=== PATIENT | female | born 1995 | race African-American/Black ===

== ENCOUNTER 2022-02-02 10:30 | Outpatient (RCR) | payer OTHER, SELFPAY ==
--- NOTE | 2021-11-11 12:39 | PT.OIE ---
Current Diagnoses Vestibular neuronitis, right ear (11/11/21) Dizziness and giddiness (11/11/21) Visit Care Team Role Provider Type Elder Ferguson DO Family Provider Non-Staff Primary Care Provider Specialty: Family Practice Address: [address] [place] [address], [id number] Email: Thomas Coombs MD Attending Provider Physician Referring Provider Specialty: Ear, Nose, Throat Address: [address] [place] [address], [id number] Email: [email or web address] Physical Therapy Initial Evaluation PT-OP-A Visit Information Start: 11/11/21 12:12 Freq: Status: Active Protocol: Document 11/11/21 11:15 DCW (Rec: 11/11/21 12:23 DCW [id number]) Out-Patient Physical Therapy Visit Information Visit Information Visit Type Initial Evaluation Visit Start Time 11:15 Visit Stop Time 12:00 Total Visit Minutes 45 Visit Number 1 Number of CABIN OUTFITTER Visits 0 Evaluation Information Evaluation Date 11/11/21 PT-OP-B Current Condition Start: 11/11/21 12:12 Freq: Status: Active Protocol: Document 11/11/21 11:15 DCW (Rec: 11/11/21 12:23 DCW [id number]) Current Condition History of Current Condition Onset Date September 2019 Current Complaints Imbalance, vertigo, dizziness with fast movements History of Current Condition Pt is a 26 year old female complaining of a two year history of spontaneous vertigo and imbalance. Pt reports her initial episode occurred during the same time she was diagnosed with Covid-19, notes it lasted multiple days and consisted of feeling like someone was squeezing my head, and then the world turning on it's side. Notes she had nausea and was vomiting with any movements. Those symptoms subsided, and were replaced with general sensations of imbalance when moving around, especially with fast head turns. Pt reports symptoms are worse with in a car or walking down the aisle of a grocery store. It feels like there is a delay in my brain with every movement. Pt denies recent hearing changes, tinnitus, diplopia, dysarthria, or decreased mentation/consciousness. Does admit to feeling clumsier since this happened, has even had a fall down stairs due to dizziness. Pt reports symptoms are waxing/waning in nature. Pt denies hx of HTN, hyperlipidemia, diabetes, arrhythmia, head trauma, seizure, back/neck problems, CVA, or excessive smoking or drinking. Does note a history of migraine, however she is unable to determine if she had migraines prior to her dizziness, or if they began the same time. PT-OP-C Subjective Start: 11/11/21 12:12 Freq: Status: Active Protocol: Document 11/11/21 11:15 DCW (Rec: 11/11/21 12:23 DCW [id number]) OP-PT Subjective Patient Comments Patient Comments Since the first bad episode stopped, it's more like a phantom dizziness. It's just always there lurking. Patient Questionnaires Dizziness Handicap Inventory DHI Score 54% DHI Functional Impairment 40 to 59% Impaired (Score 40- 59) PT-OP-O Vestibular Start: 11/11/21 12:12 Freq: Status: Active Protocol: Document 11/11/21 11:15 DCW (Rec: 11/11/21 12:23 DCW [id number]) Vestibular Assessment Auditory Tests Mata Test Within normal limits Rinne Test Negative Air Conduction Results Equal Visual Testing Smooth Pursuits Horizontal WNL Smooth Pursuits Vertical WNL Saccades Horizontal WNL Saccades Vertical WNL Gaze Evoked Nystagmus With Fixation Negative Gaze Evoked Nystagmus Without Fixation Negative Heave Test Positive Right Thrust Head Positive Right Aguila String Test WNL DVA (Line Degradation) 5 Head Shake Negative PT-OP-Q Treatments Start: 11/11/21 12:12 Freq: Status: Active Protocol: Document 11/11/21 11:15 DCW (Rec: 11/11/21 12:25 DCW [id number]) Neuro Re-Education Treatment Vestibular Rehabilitation Corrective Saccades Details Eyes, then head Distance From Target Arm length Speed as tolerated Position seated X2 Viewing Details Target and head moving opposite directions Distance From Target Arm length Speed as tolerated Position seated X1 Viewing Details Target still, head moving Distance From Target Arm length Speed as tolerated Position seated VOR Retraining Details VOR Cancellation - head and target move together Distance From Target Arm length Speed as tolerated Position seated PT-OP-T Assessment and Plan Start: 11/11/21 12:12 Freq: Status: Active Protocol: Document 11/11/21 11:15 DCW (Rec: 11/11/21 12:39 DCW [id number]) Physical Therapy Assessment Rehab Potential Rehabilitation Potential Good Evaluation Complexity Number of Personal Factors/Comorbidities 0 Number of Body Systems Impaired 1-2 Clinical Presentation at Evaluation Unstable Impairments Impairments Balance,Coordination, Vestibular,Visual Motor Goals Three Impairment DVA shows 5 line degradation Drip Box Tender Goal (LTG) Pt to demonstrate a DVA less than or equal to 3 line degradation LTG Duration 01/11/22 Two Impairment Pt suffers increased symptoms walking in a grocery store Fpc Goal (LTG) Pt to demonstrate decreased visual motion sensitivity by showing no increased symptoms following trip to her grocery store LTG Duration 01/11/22 One Impairment Pt does not have an appropriate home exercise program Short Term Goal (STG) Pt to be independent and compliant with an appropriate HEP STG Duration 12/11/21 Assessment Summary Assessment Pt presents with signs and symptoms consistent with right unilateral vestibular hypofunction, likely Vestibular Neuritis as there does not appear to be any decrease in auditory function. Pt subjective history of illness followed by an extended episode of vertigo, and then following with general balance difficulty, especially with head movements strongly suggestive of VN, in addition to pt presenting with positive R thrust and heave testing, as well as a 5 line degradation with DVA testing. Pt should benefit from skilled therapy focusing on vestibular rehab, oculomotor exercises, balance training, and habituation/ adaptation. Physical Therapy Plan Frequency and Duration Frequency of Treatment 2x/Week Duration of Treatment Two months Plan of Care Start Date 11/11/21 Plan of Care End Date 01/11/22 Therapeutic Interventions Therapeutic Interventions Balance Training,Coordination Training,Home Exercise Program ,Manual Therapy,Neuromuscular Re-education,Patient/Caregiver Education,Self-Care/Home Management,Sensory Integration ,Therapeutic Activities, Therapeutic Exercises, Vestibular Rehabilitation Next Visit Focus/Plan Next Note Type Treatment Note Next Visit Plan Vestibular rehab, balance training
--- NOTE | 2021-11-11 12:43 | PT.OIE ---
Current Diagnoses Vestibular neuronitis, right ear (11/11/21) Dizziness and giddiness (11/11/21) Visit Care Team Role Provider Type Elder Ferguson DO Family Provider Non-Staff Primary Care Provider Specialty: Family Practice Address: [address] [place] [address], [id number] Email: Thomas Coombs MD Attending Provider Physician Referring Provider Specialty: Ear, Nose, Throat Address: [address] [place] [address], [id number] Email: [email or web address] Physical Therapy Initial Evaluation PT-OP-A Visit Information Start: 11/11/21 12:12 Freq: Status: Active Protocol: Document 11/11/21 11:15 DCW (Rec: 11/11/21 12:23 DCW [id number]) Out-Patient Physical Therapy Visit Information Visit Information Visit Type Initial Evaluation Visit Start Time 11:15 Visit Stop Time 12:00 Total Visit Minutes 45 Visit Number 1 Number of AUTO PARKER Visits 0 Evaluation Information Evaluation Date 11/11/21 PT-OP-B Current Condition Start: 11/11/21 12:12 Freq: Status: Active Protocol: Document 11/11/21 11:15 DCW (Rec: 11/11/21 12:23 DCW [id number]) Current Condition History of Current Condition Onset Date September 2019 Current Complaints Imbalance, vertigo, dizziness with fast movements History of Current Condition Pt is a 26 year old female complaining of a two year history of spontaneous vertigo and imbalance. Pt reports her initial episode occurred during the same time she was diagnosed with Covid-19, notes it lasted multiple days and consisted of feeling like someone was squeezing my head, and then the world turning on it's side. Notes she had nausea and was vomiting with any movements. Those symptoms subsided, and were replaced with general sensations of imbalance when moving around, especially with fast head turns. Pt reports symptoms are worse with in a car or walking down the asile of a grocery store. It feels like there is a delay in my brain with every movement. Pt denies recent hearing changes, tinnitus, diplopia, dysarthria, or decreased mentation/consciousness. Does admit to feeling clumsier since this happened, has even had a fall down stairs due to dizziness. Pt reports symptoms are waxing/waning in nature. Pt denies hx of HTN, hyperlipidemia, diabetes, arrhythmia, head trauma, seizure, back/neck problems, CVA, or excessive smoking or drinking. Does note a history of migraine, however she is unable to determine if she had migraines prior to her dizziness, or if they began the same time. PT-OP-C Subjective Start: 11/11/21 12:12 Freq: Status: Active Protocol: Document 11/11/21 11:15 DCW (Rec: 11/11/21 12:23 DCW [id number]) OP-PT Subjective Patient Comments Patient Comments Since the first bad episode stopped, it's more like a phantom dizziness. It's just always there lurking. Patient Questionnaires Dizziness Handicap Inventory DHI Score 54% DHI Functional Impairment 40 to 59% Impaired (Score 40- 59) PT-OP-O Vestibular Start: 11/11/21 12:12 Freq: Status: Active Protocol: Document 11/11/21 11:15 DCW (Rec: 11/11/21 12:23 DCW [id number]) Vestibular Assessment Auditory Tests Mata Test Within normal limits Rinne Test Negative Air Conduction Results Equal Visual Testing Smooth Pursuits Horizontal WNL Smooth Pursuits Vertical WNL Saccades Horizontal WNL Saccades Vertical WNL Gaze Evoked Nystagmus With Fixation Negative Gaze Evoked Nystagmus Without Fixation Negative Heave Test Positive Right Thrust Head Positive Right Aguila String Test WNL DVA (Line Degradation) 5 Head Shake Negative PT-OP-Q Treatments Start: 11/11/21 12:12 Freq: Status: Active Protocol: Document 11/11/21 11:15 DCW (Rec: 11/11/21 12:25 DCW [id number]) Neuro Re-Education Treatment Vestibular Rehabilitation Corrective Saccades Details Eyes, then head Distance From Target Arm length Speed as tolerated Position seated X2 Viewing Details Target and head moving opposite directions Distance From Target Arm length Speed as tolerated Position seated X1 Viewing Details Target still, head moving Distance From Target Arm length Speed as tolerated Position seated VOR Retraining Details VOR Cancellation - head and target move together Distance From Target Arm length Speed as tolerated Position seated PT-OP-T Assessment and Plan Start: 11/11/21 12:12 Freq: Status: Active Protocol: Document 11/11/21 11:15 DCW (Rec: 11/11/21 12:39 DCW [id number]) Physical Therapy Assessment Rehab Potential Rehabilitation Potential Good Evaluation Complexity Number of Personal Factors/Comorbidities 0 Number of Body Systems Impaired 1-2 Clinical Presentation at Evaluation Unstable Impairments Impairments Balance,Coordination, Vestibular,Visual Motor Goals Three Impairment DVA shows 5 line degradation Lens Cutter Goal (LTG) Pt to demonstrate a DVA less than or equal to 3 line degradation LTG Duration 01/11/22 Two Impairment Pt suffers increased symptoms walking in a grocery store Retirement Goal (LTG) Pt to demonstrate decreased visual motion sensitivity by showing no increased symptoms following trip to her grocery store LTG Duration 01/11/22 One Impairment Pt does not have an appropriate home exercise program Short Term Goal (STG) Pt to be independent and compliant with an appropriate HEP STG Duration 12/11/21 Assessment Summary Assessment Pt presents with signs and symptoms consistent with right unilateral vestibular hypofunction, likely Vestibular Neuritis as there does not appear to be any decrease in auditory function. Pt subjective history of illness followed by an extended episode of vertigo, and then following with general balance difficulty, especially with head movements strongly suggestive of VN, in addition to pt presenting with positive R thrust and heave testing, as well as a 5 line degradation with DVA testing. Pt should benefit from skilled therapy focusing on vestibular rehab, oculomotor exercises, balance training, and habituation/ adaptation. As this initial episode occurred two years ago , pt does show some good signs of already experiencing fairly good compensation with many movements, but as she admits she avoids aggravating motions, will likely benefit from further intervention. Physical Therapy Plan Frequency and Duration Frequency of Treatment 2x/Week Duration of Treatment Two months Plan of Care Start Date 11/11/21 Plan of Care End Date 01/11/22 Therapeutic Interventions Therapeutic Interventions Balance Training,Coordination Training,Home Exercise Program ,Manual Therapy,Neuromuscular Re-education,Patient/Caregiver Education,Self-Care/Home Management,Sensory Integration ,Therapeutic Activities, Therapeutic Exercises, Vestibular Rehabilitation Next Visit Focus/Plan Next Note Type Treatment Note Next Visit Plan Vestibular rehab, balance training
--- NOTE | 2021-11-11 12:43 | PT.OPPOC ---
Physical, Occupational & Speech Therapy At [facility] Current Diagnoses Vestibular neuronitis, right ear (11/11/21) Dizziness and giddiness (11/11/21) Visit Care Team Role Provider Type Elder Ferguson DO Family Provider Non-Staff Primary Care Provider Specialty: Family Practice Address: [address] [place] [address], [id number] Email: Thomas Coombs MD Attending Provider Physician Referring Provider Specialty: Ear, Nose, Throat Address: [address] [place] [address], [id number] Email: [email or web address] Plan Of Care PT-OP-T Assessment and Plan Start: 11/11/21 12:12 Freq: Status: Active Protocol: Document 11/11/21 11:15 DCW (Rec: 11/11/21 12:39 DCW [id number]) Physical Therapy Assessment Rehab Potential Rehabilitation Potential Good Evaluation Complexity Number of Personal Factors/Comorbidities 0 Number of Body Systems Impaired 1-2 Clinical Presentation at Evaluation Unstable Impairments Impairments Balance,Coordination, Vestibular,Visual Motor Goals Three Impairment DVA shows 5 line degradation Fci Goal (LTG) Pt to demonstrate a DVA less than or equal to 3 line degradation LTG Duration 01/11/22 Two Impairment Pt suffers increased symptoms walking in a grocery store Stove Mounter Goal (LTG) Pt to demonstrate decreased visual motion sensitivity by showing no increased symptoms following trip to her grocery store LTG Duration 01/11/22 One Impairment Pt does not have an appropriate home exercise program Short Term Goal (STG) Pt to be independent and compliant with an appropriate HEP STG Duration 12/11/21 Assessment Summary Assessment Pt presents with signs and symptoms consistent with right unilateral vestibular hypofunction, likely Vestibular Neuritis as there does not appear to be any decrease in auditory function. Pt subjective history of illness followed by an extended episode of vertigo, and then following with general balance difficulty, especially with head movements strongly suggestive of VN, in addition to pt presenting with positive R thrust and heave testing, as well as a 5 line degradation with DVA testing. Pt should benefit from skilled therapy focusing on vestibular rehab, oculomotor exercises, balance training, and habituation/ adaptation. As this initial episode occurred two years ago , pt does show some good signs of already experiencing fairly good compensation with many movements, but as she admits she avoids aggravating motions, will likely benefit from further intervention. Physical Therapy Plan Frequency and Duration Frequency of Treatment 2x/Week Duration of Treatment Two months Plan of Care Start Date 11/11/21 Plan of Care End Date 01/11/22 Therapeutic Interventions Therapeutic Interventions Balance Training,Coordination Training,Home Exercise Program ,Manual Therapy,Neuromuscular Re-education,Patient/Caregiver Education,Self-Care/Home Management,Sensory Integration ,Therapeutic Activities, Therapeutic Exercises, Vestibular Rehabilitation Next Visit Focus/Plan Next Note Type Treatment Note Next Visit Plan Vestibular rehab, balance training Plan of Care Dates Plan of Care Start Date 11/11/21 Plan of Care End Date 01/11/22 Electronically Signed by: Eric Wakefield, PT 11/11/21 [id number] If you are in agreement with this Plan of Care, please return a signed and dated copy. I have reviewed this Plan of Care and certify that the skilled therapy services above are required to meet the patient?s needs. Physician Signature Date Printed Name and Credentials Clinical Instructor Signature Printed Name and Credentials
--- NOTE | 2021-11-14 10:32 | PT.OTN ---
Current Diagnoses Vestibular neuronitis, right ear (11/14/21) Dizziness and giddiness (11/14/21) Physical Therapy Treatment Note PT-OP-A Visit Information Start: 11/11/21 12:12 Freq: Status: Active Protocol: Document 11/14/21 09:45 DCW (Rec: 11/14/21 10:32 DCW [id number]) Out-Patient Physical Therapy Visit Information Visit Information Visit Type Treatment Note Visit Start Time 09:45 Visit Stop Time 10:30 Total Visit Minutes 45 Visit Number 2 Number of CHILDREN'S LITERATURE PROFESSOR Visits 0 Evaluation Information Evaluation Date 11/11/21 PT-OP-B Current Condition Start: 11/11/21 12:12 Freq: Status: Active Protocol: Document 11/11/21 11:15 DCW (Rec: 11/11/21 12:23 DCW [id number]) Current Condition History of Current Condition Onset Date September 2019 Current Complaints Imbalance, vertigo, dizziness with fast movements History of Current Condition Pt is a 26 year old female complaining of a two year history of spontaneous vertigo and imbalance. Pt reports her initial episode occurred during the same time she was diagnosed with Covid-19, notes it lasted multiple days and consisted of feeling like someone was squeezing my head, and then the world turning on it's side. Notes she had nausea and was vomiting with any movements. Those symptoms subsided, and were replaced with general sensations of imbalance when moving around, especially with fast head turns. Pt reports symptoms are worse with in a car or walking down the asile of a grocery store. It feels like there is a delay in my brain with every movement. Pt denies recent hearing changes, tinnitus, diplopia, dysarthria, or decreased mentation/consciousness. Does admit to feeling clumsier since this happened, has even had a fall down stairs due to dizziness. Pt reports symptoms are waxing/waning in nature. Pt denies hx of HTN, hyperlipidemia, diabetes, arrhythmia, head trauma, seizure, back/neck problems, CVA, or excessive smoking or drinking. Does note a history of migraine, however she is unable to determine if she had migraines prior to her dizziness, or if they began the same time. PT-OP-C Subjective Start: 11/11/21 12:12 Freq: Status: Active Protocol: Document 11/14/21 09:45 DCW (Rec: 11/14/21 10:32 [facility] [id number]) OP-PT Subjective Patient Comments Patient Comments Pt doing pretty well today, has been consistent with her HEP so far. PT-OP-O Vestibular Start: 11/11/21 12:12 Freq: Status: Active Protocol: Document 11/11/21 11:15 DCW (Rec: 11/11/21 12:23 DCW [id number]) Vestibular Assessment Auditory Tests Mata Test Within normal limits Rinne Test Negative Air Conduction Results Equal Visual Testing Smooth Pursuits Horizontal WNL Smooth Pursuits Vertical WNL Saccades Horizontal WNL Saccades Vertical WNL Gaze Evoked Nystagmus With Fixation Negative Gaze Evoked Nystagmus Without Fixation Negative Heave Test Positive Right Thrust Head Positive Right Aguila String Test WNL DVA (Line Degradation) 5 Head Shake Negative PT-OP-Q Treatments Start: 11/11/21 12:12 Freq: Status: Active Protocol: Document 11/14/21 09:45 DCW (Rec: 11/14/21 10:32 [facility] [id number]) Gym Equipment Shuttle Balance Red Comments WBOS - EO/EC, X1 Staggered Stance Neuro Re-Education Treatment Balance Activities SLS Details SLS /c EO/EC [place] and Turns Details 3-steps, bow, and head turn Dynamic gait Details Ambulation down hallway Comments Horizontal/vertical head turns Tandem ambulation EC ambulation Retro ambulation Vestibular Rehabilitation Laser Targets Details VOR Cancellation, Signature, Maze PT-OP-T Assessment and Plan Start: 11/11/21 12:12 Freq: Status: Active Protocol: Document 11/14/21 09:45 DCW (Rec: 11/14/21 10:32 [facility] [id number]) Physical Therapy Assessment Impairments Impairments Balance,Coordination, Vestibular,Visual Motor Goals Three Impairment DVA shows 5 line degradation Tester Rocket Engine Goal (LTG) Pt to demonstrate a DVA less than or equal to 3 line degradation LTG Duration 01/11/22 Two Impairment Pt suffers increased symptoms walking in a grocery store Assisted Goal (LTG) Pt to demonstrate decreased visual motion sensitivity by showing no increased symptoms following trip to her grocery store LTG Duration 01/11/22 One Impairment Pt does not have an appropriate home exercise program Short Term Goal (STG) Pt to be independent and compliant with an appropriate HEP STG Duration 5/26/22 Assessment Summary Assessment Pt tolerated treatment fairly well, very clearly struggled with addition of any head movements, but able to maintain functional balance. Physical Therapy Plan Frequency and Duration Frequency of Treatment 2x/Week Duration of Treatment Two months Plan of Care Start Date 11/11/21 Plan of Care End Date 01/11/22 Therapeutic Interventions Therapeutic Interventions Balance Training,Coordination Training,Home Exercise Program ,Manual Therapy,Neuromuscular Re-education,Patient/Caregiver Education,Self-Care/Home Management,Sensory Integration ,Therapeutic Activities, Therapeutic Exercises, Vestibular Rehabilitation Next Visit Focus/Plan Next Note Type Treatment Note Next Visit Plan Vestibular rehab, balance training
--- NOTE | 2021-11-20 12:03 | PT.OTN ---
Current Diagnoses Vestibular neuronitis, right ear (11/20/21) Dizziness and giddiness (11/20/21) Physical Therapy Treatment Note PT-OP-A Visit Information Start: 11/11/21 12:12 Freq: Status: Active Protocol: Document 11/20/21 10:35 DCW (Rec: 11/20/21 12:03 DCW [id number]) Out-Patient Physical Therapy Visit Information Visit Information Visit Type Treatment Note Visit Start Time 10:35 Visit Stop Time 11:15 Total Visit Minutes 40 Visit Number 3 Number of GENERATOR ASSEMBLER Visits 0 Evaluation Information Evaluation Date 11/11/21 PT-OP-B Current Condition Start: 11/11/21 12:12 Freq: Status: Active Protocol: Document 11/11/21 11:15 DCW (Rec: 11/11/21 12:23 DCW [id number]) Current Condition History of Current Condition Onset Date September 2019 Current Complaints Imbalance, vertigo, dizziness with fast movements History of Current Condition Pt is a 26 year old female complaining of a two year history of spontaneous vertigo and imbalance. Pt reports her initial episode occurred during the same time she was diagnosed with Covid-19, notes it lasted multiple days and consisted of feeling like someone was squeezing my head, and then the world turning on it's side. Notes she had nausea and was vomiting with any movements. Those symptoms subsided, and were replaced with general sensations of imbalance when moving around, especially with fast head turns. Pt reports symptoms are worse with in a car or walking down the asile of a grocery store. It feels like there is a delay in my brain with every movement. Pt denies recent hearing changes, tinnitus, diplopia, dysarthria, or decreased mentation/consciousness. Does admit to feeling clumsier since this happened, has even had a fall down stairs due to dizziness. Pt reports symptoms are waxing/waning in nature. Pt denies hx of HTN, hyperlipidemia, diabetes, arrhythmia, head trauma, seizure, back/neck problems, CVA, or excessive smoking or drinking. Does note a history of migraine, however she is unable to determine if she had migraines prior to her dizziness, or if they began the same time. PT-OP-C Subjective Start: 11/11/21 12:12 Freq: Status: Active Protocol: Document 11/20/21 10:35 DCW (Rec: 11/20/21 12:03 DCW [id number]) OP-PT Subjective Patient Comments Patient Comments PT notes she was a little fatigued following her last visit, but it only lasted ~10 minutes. PT-OP-O Vestibular Start: 11/11/21 12:12 Freq: Status: Active Protocol: Document 11/11/21 11:15 DCW (Rec: 11/11/21 12:23 DCW [id number]) Vestibular Assessment Auditory Tests Mata Test Within normal limits Rinne Test Negative Air Conduction Results Equal Visual Testing Smooth Pursuits Horizontal WNL Smooth Pursuits Vertical WNL Saccades Horizontal WNL Saccades Vertical WNL Gaze Evoked Nystagmus With Fixation Negative Gaze Evoked Nystagmus Without Fixation Negative Heave Test Positive Right Thrust Head Positive Right [place] String Test WNL DVA (Line Degradation) 5 Head Shake Negative PT-OP-Q Treatments Start: 11/11/21 12:12 Freq: Status: Active Protocol: Document 11/20/21 10:35 DCW (Rec: 11/20/21 12:03 DCW [id number]) Gym Equipment Shuttle Balance Red Comments WBOS - EO/EC, X1, perturbations Staggered Stance - ball toss Neuro Re-Education Treatment Balance Activities [place] and Turns Details 3-steps, bow, and head turn Dynamic gait Details Ambulation down hallway Comments Horizontal/vertical head turns (120 bpm) Tandem ambulation EC ambulation Retro ambulation PT-OP-T Assessment and Plan Start: 11/11/21 12:12 Freq: Status: Active Protocol: Document 11/20/21 10:35 DCW (Rec: 11/20/21 12:03 DCW [id number]) Physical Therapy Assessment Impairments Impairments Balance,Coordination, Vestibular,Visual Motor Goals Three Impairment DVA shows 5 line degradation Subsystems Engineer Goal (LTG) Pt to demonstrate a DVA less than or equal to 3 line degradation LTG Duration 01/11/22 Two Impairment Pt suffers increased symptoms walking in a grocery store Care Home Goal (LTG) Pt to demonstrate decreased visual motion sensitivity by showing no increased symptoms following trip to her grocery store LTG Duration 01/11/22 One Impairment Pt does not have an appropriate home exercise program Short Term Goal (STG) Pt to be independent and compliant with an appropriate HEP STG Duration 12/11/21 Assessment Summary Assessment Pt demonstrated some increased difficulty with most of the dynamic challenges, especially horizontal head turns and the step/bow/turn exercise. Increased path deviation when using 120 bpm metronome. Physical Therapy Plan Frequency and Duration Frequency of Treatment 2x/Week Duration of Treatment Two months Plan of Care Start Date 11/11/21 Plan of Care End Date 01/11/22 Therapeutic Interventions Therapeutic Interventions Balance Training,Coordination Training,Home Exercise Program ,Manual Therapy,Neuromuscular Re-education,Patient/Caregiver Education,Self-Care/Home Management,Sensory Integration ,Therapeutic Activities, Therapeutic Exercises, Vestibular Rehabilitation Next Visit Focus/Plan Next Note Type Treatment Note Next Visit Plan Vestibular rehab, balance training
--- NOTE | 2021-12-03 12:53 | PT.OTN ---
Current Diagnoses Vestibular neuronitis, right ear (12/03/21) Dizziness and giddiness (12/03/21) Physical Therapy Treatment Note PT-OP-A Visit Information Start: 11/11/21 12:12 Freq: Status: Active Protocol: Document 12/03/21 11:31 AMB (Rec: 12/03/21 11:55 AMB [id number]) Out-Patient Physical Therapy Visit Information Visit Information Visit Type Treatment Note Visit Start Time 10:35 Visit Stop Time 11:15 Total Visit Minutes 40 Visit Number 4 Number of DOWEL INSERTING MACHINE OPERATOR Visits 0 PT-OP-B Current Condition Start: 11/11/21 12:12 Freq: Status: Active Protocol: Document 11/11/21 11:15 DCW (Rec: 11/11/21 12:23 DCW [id number]) Current Condition History of Current Condition Onset Date September 2019 Current Complaints Imbalance, vertigo, dizziness with fast movements History of Current Condition Pt is a 26 year old female complaining of a two year history of spontaneous vertigo and imbalance. Pt reports her initial episode occurred during the same time she was diagnosed with Covid-19, notes it lasted multiple days and consisted of feeling like someone was squeezing my head, and then the world turning on it's side. Notes she had nausea and was vomiting with any movements. Those symptoms subsided, and were replaced with general sensations of imbalance when moving around, especially with fast head turns. Pt reports symptoms are worse with in a car or walking down the asile of a grocery store. It feels like there is a delay in my brain with every movement. Pt denies recent hearing changes, tinnitus, diplopia, dysarthria, or decreased mentation/consciousness. Does admit to feeling clumsier since this happened, has even had a fall down stairs due to dizziness. Pt reports symptoms are waxing/waning in nature. Pt denies hx of HTN, hyperlipidemia, diabetes, arrhythmia, head trauma, seizure, back/neck problems, CVA, or excessive smoking or drinking. Does note a history of migraine, however she is unable to determine if she had migraines prior to her dizziness, or if they began the same time. PT-OP-C Subjective Start: 11/11/21 12:12 Freq: Status: Active Protocol: Document 12/03/21 11:31 AMB (Rec: 12/03/21 11:55 AMB [id number]) OP-PT Subjective Patient Comments Patient Comments Pt stayed dizzy for about 10 minutes after PT last visit, noticed some right sided ear pressure. PT-OP-O Vestibular Start: 11/11/21 12:12 Freq: Status: Active Protocol: Document 11/11/21 11:15 DCW (Rec: 11/11/21 12:23 DCW [id number]) Vestibular Assessment Auditory Tests Mata Test Within normal limits Rinne Test Negative Air Conduction Results Equal Visual Testing Smooth Pursuits Horizontal WNL Smooth Pursuits Vertical WNL Saccades Horizontal WNL Saccades Vertical WNL Gaze Evoked Nystagmus With Fixation Negative Gaze Evoked Nystagmus Without Fixation Negative Heave Test Positive Right Thrust Head Positive Right [place] String Test WNL DVA (Line Degradation) 5 Head Shake Negative PT-OP-Q Treatments Start: 11/11/21 12:12 Freq: Status: Active Protocol: Document 12/03/21 11:31 AMB (Rec: 12/03/21 11:55 AMB [id number]) Neuro Re-Education Treatment Balance Activities foam Details eyes open/eyes closed SLS Details SLS /c EO/EC [place] and Turns Details 3-steps, bow, and head turn Reps/Duration 5 min- 1 rest break Comments slow head turn Dynamic gait Details Ambulation down hallway Comments Horizontal/vertical head turns (90 bpm) Tandem ambulation Retro ambulation Vestibular Rehabilitation X2 Viewing Details Target and head moving opposite directions Distance From Target Arm length Speed as tolerated Position standing X1 Viewing Details Target still, head moving Distance From Target Arm length Speed as tolerated Position standing PT-OP-T Assessment and Plan Start: 11/11/21 12:12 Freq: Status: Active Protocol: Document 12/03/21 12:40 AMB (Rec: 12/03/21 12:49 AMB [id number]) Physical Therapy Assessment Goals Three Impairment DVA shows 5 line degradation Supervisor Stone Goal (LTG) Pt to demonstrate a DVA less than or equal to 3 line degradation LTG Duration 01/11/22 Two Impairment Pt suffers increased symptoms walking in a grocery store Intermediate Goal (LTG) Pt to demonstrate decreased visual motion sensitivity by showing no increased symptoms following trip to her grocery store LTG Duration 01/11/22 One Impairment Pt does not have an appropriate home exercise program Short Term Goal (STG) Pt to be independent and compliant with an appropriate HEP STG Duration 12/11/21 Assessment Summary Assessment Lianne will be out of town for the next 3 weeks [place]. Did ask pt to try to do HEP 2x /day and try for earlier in the day when she is not already quite tired. Physical Therapy Plan Next Visit Focus/Plan Next Note Type Treatment Note Next Visit Plan Vestibular rehab, balance training
--- NOTE | 2022-01-08 14:30 | PT.OTN ---
Current Diagnoses Dizziness and giddiness (01/08/22) Physical Therapy Treatment Note PT-OP-A Visit Information Start: 11/11/21 12:12 Freq: Status: Active Protocol: Document 01/08/22 13:45 DCW (Rec: 01/08/22 14:29 DCW [id number]) Out-Patient Physical Therapy Visit Information Visit Information Visit Type Progress Note Visit Start Time 13:45 Visit Stop Time 14:30 Total Visit Minutes 45 Visit Number 5 Number of MANAGER UNIVERSAL Visits 0 Evaluation Information Evaluation Date 11/11/21 PT-OP-B Current Condition Start: 11/11/21 12:12 Freq: Status: Active Protocol: Document 11/11/21 11:15 DCW (Rec: 11/11/21 12:23 DCW [id number]) Current Condition History of Current Condition Onset Date September 2019 Current Complaints Imbalance, vertigo, dizziness with fast movements History of Current Condition Pt is a 26 year old female complaining of a two year history of spontaneous vertigo and imbalance. Pt reports her initial episode occurred during the same time she was diagnosed with Covid-19, notes it lasted multiple days and consisted of feeling like someone was squeezing my head, and then the world turning on it's side. Notes she had nausea and was vomiting with any movements. Those symptoms subsided, and were replaced with general sensations of imbalance when moving around, especially with fast head turns. Pt reports symptoms are worse with in a car or walking down the asile of a grocery store. It feels like there is a delay in my brain with every movement. Pt denies recent hearing changes, tinnitus, diplopia, dysarthria, or decreased mentation/consciousness. Does admit to feeling clumsier since this happened, has even had a fall down stairs due to dizziness. Pt reports symptoms are waxing/waning in nature. Pt denies hx of HTN, hyperlipidemia, diabetes, arrhythmia, head trauma, seizure, back/neck problems, CVA, or excessive smoking or drinking. Does note a history of migraine, however she is unable to determine if she had migraines prior to her dizziness, or if they began the same time. PT-OP-C Subjective Start: 11/11/21 12:12 Freq: Status: Active Protocol: Document 01/08/22 13:45 DCW (Rec: 06/23/22 14:29 DCW [id number]) OP-PT Subjective Patient Comments Patient Comments Pt notes she is feeling pretty good, but has had the last month off work, and hasn't been doing a lot. PT-OP-O Vestibular Start: 11/11/21 12:12 Freq: Status: Active Protocol: Document 01/08/22 13:45 DCW (Rec: 01/08/22 14:29 DCW [id number]) Vestibular Assessment Visual Testing DVA (Line Degradation) 5 PT-OP-Q Treatments Start: 11/11/21 12:12 Freq: Status: Active Protocol: Document 01/08/22 13:45 DCW (Rec: 01/08/22 14:29 DCW [id number]) Gym Equipment Shuttle Balance Red Comments WBOS - EO/EC, X1 Lateral weight shift Neuro Re-Education Treatment Balance Activities foam Details Blue BOSU Equipment railing SLS Details SLS /c EO/EC [place] and Turns Details 3-steps, bow, and head turn Comments slow head turn Dynamic gait Details Ambulation down hallway Comments Horizontal/vertical head turns (120 bpm) Tandem ambulation Retro ambulation Vestibular Rehabilitation X2 Viewing Details Target and head moving opposite directions Distance From Target Arm length Speed as tolerated Position Tandem stance Comments 90 bpm PT-OP-T Assessment and Plan Start: 11/11/21 12:12 Freq: Status: Active Protocol: Document 01/08/22 13:45 DCW (Rec: 01/08/22 14:29 DCW [id number]) Physical Therapy Assessment Goals Three Impairment DVA shows 5 line degradation Prison Goal (LTG) Pt to demonstrate a DVA less than or equal to 3 line degradation LTG Duration 03/10/22 Two Impairment Pt suffers increased symptoms walking in a grocery store Carpenter/Labor Goal (LTG) Pt to demonstrate decreased visual motion sensitivity by showing no increased symptoms following trip to her grocery store LTG Duration 03/10/22 One Impairment Pt does not have an appropriate home exercise program Short Term Goal (STG) Pt to be independent and compliant with an appropriate HEP STG Duration 02/07/22 - Inconsistent Assessment Summary Assessment Pt unchanged with DVA score since initial evaluation, did note that overall she feels like her symptoms have improved, however during today 's session, she actually complained of worse symptoms. Pt has not been seen in a month, and admits she has not been very consistent with her HEP. Would like to continue skilled vestibular rehabilitation to help decrease subjective complaints . Physical Therapy Plan Frequency and Duration Frequency of Treatment 2x/Week Duration of Treatment Two months Plan of Care Start Date 01/08/22 Plan of Care End Date 03/10/22 Next Visit Focus/Plan Next Note Type Treatment Note Next Visit Plan Vestibular rehab, balance training
--- NOTE | 2022-01-08 14:30 | PT.OPPOC ---
Physical, Occupational & Speech Therapy At [facility] Current Diagnoses Dizziness and giddiness (01/08/22) Visit Care Team Role Provider Type Elder Ferguson DO Family Provider Non-Staff Primary Care Provider Specialty: Family Practice Address: [address] [place] [address], [id number] Email: Thomas Coombs MD Attending Provider Physician Referring Provider Specialty: Ear, Nose, Throat Address: [address] [place] [address], [id number] Email: [email or web address] Plan Of Care PT-OP-T Assessment and Plan Start: 11/11/21 12:12 Freq: Status: Active Protocol: Document 01/08/22 13:45 DCW (Rec: 01/08/22 14:29 DCW [id number]) Physical Therapy Assessment Goals Three Impairment DVA shows 5 line degradation Shelter Goal (LTG) Pt to demonstrate a DVA less than or equal to 3 line degradation LTG Duration 03/10/22 Two Impairment Pt suffers increased symptoms walking in a grocery store Shelter Goal (LTG) Pt to demonstrate decreased visual motion sensitivity by showing no increased symptoms following trip to her grocery store LTG Duration 03/10/22 One Impairment Pt does not have an appropriate home exercise program Short Term Goal (STG) Pt to be independent and compliant with an appropriate HEP STG Duration 02/07/22 - Inconsistent Assessment Summary Assessment Pt unchanged with DVA score since initial evaluation, did note that overall she feels like her symptoms have improved, however during today 's session, she actually complained of worse symptoms. Pt has not been seen in a month, and admits she has not been very consistent with her HEP. Would like to continue skilled vestibular rehabilitation to help decrease subjective complaints . Physical Therapy Plan Frequency and Duration Frequency of Treatment 2x/Week Duration of Treatment Two months Plan of Care Start Date 01/08/22 Plan of Care End Date 03/10/22 Next Visit Focus/Plan Next Note Type Treatment Note Next Visit Plan Vestibular rehab, balance training Plan of Care Dates Plan of Care Start Date 01/08/22 Plan of Care End Date 03/10/22 Electronically Signed by: Eric Wakefield, PT 01/08/22 0749 If you are in agreement with this Plan of Care, please return a signed and dated copy. I have reviewed this Plan of Care and certify that the skilled therapy services above are required to meet the patient?s needs. Physician Signature Date Printed Name and Credentials Clinical Instructor Signature Printed Name and Credentials
--- NOTE | 2022-01-15 12:44 | PT.OTN ---
Current Diagnoses Dizziness and giddiness (01/15/22) Physical Therapy Treatment Note PT-OP-A Visit Information Start: 11/11/21 12:12 Freq: Status: Active Protocol: Document 01/15/22 12:00 DCW (Rec: 01/15/22 12:44 DCW [id number]) Out-Patient Physical Therapy Visit Information Visit Information Visit Type Treatment Note Visit Start Time 12:00 Visit Stop Time 12:45 Total Visit Minutes 45 Visit Number 6 Number of MERCHANDISING LEAD Visits 0 Evaluation Information Evaluation Date 11/11/21 PT-OP-B Current Condition Start: 11/11/21 12:12 Freq: Status: Active Protocol: Document 11/11/21 11:15 DCW (Rec: 11/11/21 12:23 DCW [id number]) Current Condition History of Current Condition Onset Date September 2019 Current Complaints Imbalance, vertigo, dizziness with fast movements History of Current Condition Pt is a 26 year old female complaining of a two year history of spontaneous vertigo and imbalance. Pt reports her initial episode occurred during the same time she was diagnosed with Covid-19, notes it lasted multiple days and consisted of feeling like someone was squeezing my head, and then the world turning on it's side. Notes she had nausea and was vomiting with any movements. Those symptoms subsided, and were replaced with general sensations of imbalance when moving around, especially with fast head turns. Pt reports symptoms are worse with in a car or walking down the asile of a grocery store. It feels like there is a delay in my brain with every movement. Pt denies recent hearing changes, tinnitus, diplopia, dysarthria, or decreased mentation/consciousness. Does admit to feeling clumsier since this happened, has even had a fall down stairs due to dizziness. Pt reports symptoms are waxing/waning in nature. Pt denies hx of HTN, hyperlipidemia, diabetes, arrhythmia, head trauma, seizure, back/neck problems, CVA, or excessive smoking or drinking. Does note a history of migraine, however she is unable to determine if she had migraines prior to her dizziness, or if they began the same time. PT-OP-C Subjective Start: 11/11/21 12:12 Freq: Status: Active Protocol: Document 01/15/22 12:00 DCW (Rec: 01/15/22 12:44 DCW [id number]) OP-PT Subjective Patient Comments Patient Comments Pt feeling pretty good overall . PT-OP-O Vestibular Start: 11/11/21 12:12 Freq: Status: Active Protocol: Document 01/08/22 13:45 DCW (Rec: 01/08/22 14:29 DCW [id number]) Vestibular Assessment Visual Testing DVA (Line Degradation) 5 PT-OP-Q Treatments Start: 11/11/21 12:12 Freq: Status: Active Protocol: Document 01/15/22 12:00 DCW (Rec: 01/15/22 12:44 DCW [id number]) Gym Equipment Shuttle Balance Red Comments WBOS - X1 Staggered - EO/EC Lateral weight shift Neuro Re-Education Treatment Balance Activities foam Details Blue BOSU Equipment railing SLS Details SLS /c EO/EC [place] foam [place] and Turns Details 3-steps, bow, and head turn Comments slow head turn Dynamic gait Details Ambulation down hallway Comments Horizontal/vertical head turns (120 bpm) Tandem ambulation Retro ambulation PT-OP-T Assessment and Plan Start: 11/11/21 12:12 Freq: Status: Active Protocol: Document 01/15/22 12:00 DCW (Rec: 01/15/22 12:44 DCW [id number]) Physical Therapy Assessment Goals Three Impairment DVA shows 5 line degradation Rules Examiner Goal (LTG) Pt to demonstrate a DVA less than or equal to 3 line degradation LTG Duration 03/10/22 Two Impairment Pt suffers increased symptoms walking in a grocery store Rules Examiner Goal (LTG) Pt to demonstrate decreased visual motion sensitivity by showing no increased symptoms following trip to her grocery store LTG Duration 03/10/22 One Impairment Pt does not have an appropriate home exercise program Short Term Goal (STG) Pt to be independent and compliant with an appropriate HEP STG Duration 02/07/22 - Inconsistent Assessment Summary Assessment Pt showing improved balance/ stability with all challenges, however does note beginnings of a migraine occasionally during treatment, specifically with head turns during ambulation Physical Therapy Plan Frequency and Duration Frequency of Treatment 2x/Week Duration of Treatment Two months Plan of Care Start Date 01/08/22 Plan of Care End Date 03/10/22 Next Visit Focus/Plan Next Note Type Treatment Note Next Visit Plan Vestibular rehab, balance training
--- NOTE | 2022-01-22 12:01 | PT.OTN ---
Current Diagnoses Dizziness and giddiness (01/22/22) Physical Therapy Treatment Note PT-OP-A Visit Information Start: 11/11/21 12:12 Freq: Status: Active Protocol: Document 01/22/22 11:15 DCW (Rec: 01/22/22 12:00 DCW [id number]) Out-Patient Physical Therapy Visit Information Visit Information Visit Type Treatment Note Visit Start Time 11:15 Visit Stop Time 12:00 Total Visit Minutes 45 Visit Number 7 Number of MULTIPLE LAUNCH ROCKET SYSTEM CREWMEMBER Visits 0 Evaluation Information Evaluation Date 11/11/21 PT-OP-B Current Condition Start: 11/11/21 12:12 Freq: Status: Active Protocol: Document 11/11/21 11:15 DCW (Rec: 11/11/21 12:23 DCW [id number]) Current Condition History of Current Condition Onset Date September 2019 Current Complaints Imbalance, vertigo, dizziness with fast movements History of Current Condition Pt is a 26 year old female complaining of a two year history of spontaneous vertigo and imbalance. Pt reports her initial episode occurred during the same time she was diagnosed with Covid-19, notes it lasted multiple days and consisted of feeling like someone was squeezing my head, and then the world turning on it's side. Notes she had nausea and was vomiting with any movements. Those symptoms subsided, and were replaced with general sensations of imbalance when moving around, especially with fast head turns. Pt reports symptoms are worse with in a car or walking down the asile of a grocery store. It feels like there is a delay in my brain with every movement. Pt denies recent hearing changes, tinnitus, diplopia, dysarthria, or decreased mentation/consciousness. Does admit to feeling clumsier since this happened, has even had a fall down stairs due to dizziness. Pt reports symptoms are waxing/waning in nature. Pt denies hx of HTN, hyperlipidemia, diabetes, arrhythmia, head trauma, seizure, back/neck problems, CVA, or excessive smoking or drinking. Does note a history of migraine, however she is unable to determine if she had migraines prior to her dizziness, or if they began the same time. PT-OP-C Subjective Start: 11/11/21 12:12 Freq: Status: Active Protocol: Document 01/22/22 11:15 DCW (Rec: 01/22/22 12:01 DCW [id number]) OP-PT Subjective Patient Comments Patient Comments Pt reports she is pretty tired today. PT-OP-O Vestibular Start: 11/11/21 12:12 Freq: Status: Active Protocol: Document 01/08/22 13:45 DCW (Rec: 01/08/22 14:29 DCW [id number]) Vestibular Assessment Visual Testing DVA (Line Degradation) 5 PT-OP-Q Treatments Start: 11/11/21 12:12 Freq: Status: Active Protocol: Document 01/22/22 11:15 DCW (Rec: 01/22/22 12:00 DCW [id number]) Gym Equipment Shuttle Balance Red Comments WBOS - X1 Staggered - EO/EC Lateral weight shift Neuro Re-Education Treatment Balance Activities SLS Details SLS /c EO/EC Surface Jones foam Dynamic gait Details Ambulation down hallway Comments Horizontal/vertical head turns (120 bpm) Tandem ambulation Retro ambulation Vestibular Rehabilitation Eye Push-ups Details Eye push-ups Position Seated PT-OP-T Assessment and Plan Start: 11/11/21 12:12 Freq: Status: Active Protocol: Document 01/22/22 11:15 DCW (Rec: 01/22/22 12:00 DCW [id number]) Physical Therapy Assessment Goals Three Impairment DVA shows 5 line degradation Solar Pv Installer Goal (LTG) Pt to demonstrate a DVA less than or equal to 3 line degradation LTG Duration 03/10/22 Two Impairment Pt suffers increased symptoms walking in a grocery store Snf Goal (LTG) Pt to demonstrate decreased visual motion sensitivity by showing no increased symptoms following trip to her grocery store LTG Duration 03/10/22 One Impairment Pt does not have an appropriate home exercise program Short Term Goal (STG) Pt to be independent and compliant with an appropriate HEP STG Duration 02/07/22 - Inconsistent Assessment Summary Assessment Pt struggled greatly with pencil push-ups, recommended addition to HEP. Admits it feels like my eyes aren't moving together. Physical Therapy Plan Frequency and Duration Frequency of Treatment 2x/Week Duration of Treatment Two months Plan of Care Start Date 01/08/22 Plan of Care End Date 03/10/22 Next Visit Focus/Plan Next Note Type Treatment Note Next Visit Plan Vestibular rehab, balance training
--- NOTE | 2022-01-26 11:14 | PT.OTN ---
Current Diagnoses Dizziness and giddiness (01/26/22) Physical Therapy Treatment Note PT-OP-A Visit Information Start: 11/11/21 12:12 Freq: Status: Active Protocol: Document 01/26/22 10:30 DCW (Rec: 01/26/22 11:13 DCW [id number]) Out-Patient Physical Therapy Visit Information Visit Information Visit Type Treatment Note Visit Start Time 10:30 Visit Stop Time 11:15 Total Visit Minutes 45 Visit Number 8 Number of MANAGER MERCHANDISE Visits 0 Evaluation Information Evaluation Date 11/11/21 PT-OP-B Current Condition Start: 11/11/21 12:12 Freq: Status: Active Protocol: Document 11/11/21 11:15 DCW (Rec: 11/11/21 12:23 DCW [id number]) Current Condition History of Current Condition Onset Date September 2019 Current Complaints Imbalance, vertigo, dizziness with fast movements History of Current Condition Pt is a 26 year old female complaining of a two year history of spontaneous vertigo and imbalance. Pt reports her initial episode occurred during the same time she was diagnosed with Covid-19, notes it lasted multiple days and consisted of feeling like someone was squeezing my head, and then the world turning on it's side. Notes she had nausea and was vomiting with any movements. Those symptoms subsided, and were replaced with general sensations of imbalance when moving around, especially with fast head turns. Pt reports symptoms are worse with in a car or walking down the asile of a grocery store. It feels like there is a delay in my brain with every movement. Pt denies recent hearing changes, tinnitus, diplopia, dysarthria, or decreased mentation/consciousness. Does admit to feeling clumsier since this happened, has even had a fall down stairs due to dizziness. Pt reports symptoms are waxing/waning in nature. Pt denies hx of HTN, hyperlipidemia, diabetes, arrhythmia, head trauma, seizure, back/neck problems, CVA, or excessive smoking or drinking. Does note a history of migraine, however she is unable to determine if she had migraines prior to her dizziness, or if they began the same time. PT-OP-C Subjective Start: 11/11/21 12:12 Freq: Status: Active Protocol: Document 01/26/22 10:30 DCW (Rec: 01/26/22 11:13 DCW [id number]) OP-PT Subjective Patient Comments Patient Comments Pt notes that she has been doing her HEP and her eyes are fatigued. PT-OP-O Vestibular Start: 11/11/21 12:12 Freq: Status: Active Protocol: Document 01/08/22 13:45 DCW (Rec: 01/08/22 14:29 DCW [id number]) Vestibular Assessment Visual Testing DVA (Line Degradation) 5 PT-OP-Q Treatments Start: 11/11/21 12:12 Freq: Status: Active Protocol: Document 01/26/22 10:30 DCW (Rec: 01/26/22 11:13 DCW [id number]) Gym Equipment Shuttle Balance Red Comments WBOS - X1 SLS Staggered - EO/EC, ball toss Neuro Re-Education Treatment Balance Activities SLS Details SLS /c EO/EC Surface Jones foam [place] and Turns Details 3-steps, bow, and head turn Comments slow head turn Dynamic gait Details Ambulation down hallway Comments Horizontal/vertical head turns (120 bpm) Tandem ambulation Retro ambulation Vestibular Rehabilitation Eye Push-ups Details Eye push-ups Position Seated PT-OP-T Assessment and Plan Start: 11/11/21 12:12 Freq: Status: Active Protocol: Document 01/26/22 10:30 DCW (Rec: 01/26/22 11:13 DCW [id number]) Physical Therapy Assessment Goals Three Impairment DVA shows 5 line degradation Jail Goal (LTG) Pt to demonstrate a DVA less than or equal to 3 line degradation LTG Duration 03/10/22 Two Impairment Pt suffers increased symptoms walking in a grocery store Central Office Installer Goal (LTG) Pt to demonstrate decreased visual motion sensitivity by showing no increased symptoms following trip to her grocery store LTG Duration 03/10/22 One Impairment Pt does not have an appropriate home exercise program Short Term Goal (STG) Pt to be independent and compliant with an appropriate HEP STG Duration 02/07/22 - Inconsistent Assessment Summary Assessment Pt doing better with HEP, overall showing balance progress, especially on Shuttle Balance. Physical Therapy Plan Frequency and Duration Frequency of Treatment 2x/Week Duration of Treatment Two months Plan of Care Start Date 01/08/22 Plan of Care End Date 03/10/22 Next Visit Focus/Plan Next Note Type Treatment Note Next Visit Plan Vestibular rehab, balance training
--- NOTE | 2022-02-02 11:13 | PT.OTN ---
Current Diagnoses Dizziness and giddiness (02/02/22) Physical Therapy Treatment Note PT-OP-A Visit Information Start: 11/11/21 12:12 Freq: Status: Active Protocol: Document 02/02/22 10:30 DCW (Rec: 02/02/22 11:13 DCW [id number]) Out-Patient Physical Therapy Visit Information Visit Information Visit Type Treatment Note Visit Start Time 10:30 Visit Stop Time 11:15 Total Visit Minutes 45 Visit Number 9 Number of SALES SUPERVISOR Visits 0 Evaluation Information Evaluation Date 11/11/21 PT-OP-B Current Condition Start: 11/11/21 12:12 Freq: Status: Active Protocol: Document 11/11/21 11:15 DCW (Rec: 11/11/21 12:23 DCW [id number]) Current Condition History of Current Condition Onset Date September 2019 Current Complaints Imbalance, vertigo, dizziness with fast movements History of Current Condition Pt is a 26 year old female complaining of a two year history of spontaneous vertigo and imbalance. Pt reports her initial episode occurred during the same time she was diagnosed with Covid-19, notes it lasted multiple days and consisted of feeling like someone was squeezing my head, and then the world turning on it's side. Notes she had nausea and was vomiting with any movements. Those symptoms subsided, and were replaced with general sensations of imbalance when moving around, especially with fast head turns. Pt reports symptoms are worse with in a car or walking down the asile of a grocery store. It feels like there is a delay in my brain with every movement. Pt denies recent hearing changes, tinnitus, diplopia, dysarthria, or decreased mentation/consciousness. Does admit to feeling clumsier since this happened, has even had a fall down stairs due to dizziness. Pt reports symptoms are waxing/waning in nature. Pt denies hx of HTN, hyperlipidemia, diabetes, arrhythmia, head trauma, seizure, back/neck problems, CVA, or excessive smoking or drinking. Does note a history of migraine, however she is unable to determine if she had migraines prior to her dizziness, or if they began the same time. PT-OP-C Subjective Start: 11/11/21 12:12 Freq: Status: Active Protocol: Document 02/02/22 10:30 DCW (Rec: 02/02/22 11:13 DCW [id number]) OP-PT Subjective Patient Comments Patient Comments My eyes are tired, but I'm here. PT-OP-O Vestibular Start: 11/11/21 12:12 Freq: Status: Active Protocol: Document 01/08/22 13:45 DCW (Rec: 01/08/22 14:29 DCW [id number]) Vestibular Assessment Visual Testing DVA (Line Degradation) 5 PT-OP-Q Treatments Start: 11/11/21 12:12 Freq: Status: Active Protocol: Document 02/02/22 10:30 DCW (Rec: 02/02/22 11:13 DCW [id number]) Gym Equipment Shuttle Balance Red Comments WBOS - EO/EC SLS Staggered - ball toss Neuro Re-Education Treatment Balance Activities SLS Details SLS /c X1 Surface Jones foam Dynamic gait Details Ambulation down hallway Comments Horizontal/vertical head turns (120 bpm) Tandem ambulation Retro ambulation Vestibular Rehabilitation Eye Push-ups Details Eye push-ups Position Seated PT-OP-T Assessment and Plan Start: 11/11/21 12:12 Freq: Status: Active Protocol: Document 02/02/22 10:30 DCW (Rec: 02/02/22 11:13 DCW [id number]) Physical Therapy Assessment Goals Three Impairment DVA shows 5 line degradation Prison Goal (LTG) Pt to demonstrate a DVA less than or equal to 3 line degradation LTG Duration 03/10/22 Two Impairment Pt suffers increased symptoms walking in a grocery store Certified Art Therapist Goal (LTG) Pt to demonstrate decreased visual motion sensitivity by showing no increased symptoms following trip to her grocery store LTG Duration 03/10/22 One Impairment Pt does not have an appropriate home exercise program Short Term Goal (STG) Pt to be independent and compliant with an appropriate HEP STG Duration 02/07/22 - Inconsistent Assessment Summary Assessment Current insurance auth expires today. If that can be excended, plan for pt to schedule appointments into February, pt leaving beginning of March with new order from the [employer], moving to [place]. Physical Therapy Plan Frequency and Duration Frequency of Treatment 2x/Week Duration of Treatment Two months Plan of Care Start Date 01/08/22 Plan of Care End Date 03/10/22 Next Visit Focus/Plan Next Note Type Treatment Note Next Visit Plan Vestibular rehab, balance training
--- NOTE | 2022-05-26 16:52 | PT.OPDS ---
Current Diagnoses Dizziness and giddiness (02/02/22) Visit Care Team Role Provider Type Elder Ferguson DO Family Provider Non-Staff Primary Care Provider Specialty: Family Practice Address: [address] [place] [address], [id number] Email: Thomas Coombs MD Attending Provider Physician Referring Provider Specialty: Ear, Nose, Throat Address: [address] [place] [address], [id number] Email: [email or web address] Visit Number Visit Number 9 Discharge Summary PT-OP-B Current Condition Start: 11/11/21 12:12 Freq: Status: Active Protocol: Document 11/11/21 11:15 DCW (Rec: 11/11/21 12:23 DCW [id number]) Current Condition History of Current Condition Onset Date September 2019 Current Complaints Imbalance, vertigo, dizziness with fast movements History of Current Condition Pt is a 26 year old female complaining of a two year history of spontaneous vertigo and imbalance. Pt reports her initial episode occurred during the same time she was diagnosed with Covid-19, notes it lasted multiple days and consisted of feeling like someone was squeezing my head, and then the world turning on it's side. Notes she had nausea and was vomiting with any movements. Those symptoms subsided, and were replaced with general sensations of imbalance when moving around, especially with fast head turns. Pt reports symptoms are worse with in a car or walking down the asile of a grocery store. It feels like there is a delay in my brain with every movement. Pt denies recent hearing changes, tinnitus, diplopia, dysarthria, or decreased mentation/consciousness. Does admit to feeling clumsier since this happened, has even had a fall down stairs due to dizziness. Pt reports symptoms are waxing/waning in nature. Pt denies hx of HTN, hyperlipidemia, diabetes, arrhythmia, head trauma, seizure, back/neck problems, CVA, or excessive smoking or drinking. Does note a history of migraine, however she is unable to determine if she had migraines prior to her dizziness, or if they began the same time. PT-OP-C Subjective Start: 11/11/21 12:12 Freq: Status: Active Protocol: Document 02/02/22 10:30 DCW (Rec: 02/02/22 11:13 DCW [id number]) OP-PT Subjective Patient Comments Patient Comments My eyes are tired, but I'm here. PT-OP-O Vestibular Start: 11/11/21 12:12 Freq: Status: Active Protocol: Document 01/08/22 13:45 DCW (Rec: 01/08/22 14:29 DCW [id number]) Vestibular Assessment Visual Testing DVA (Line Degradation) 5 PT-OP-T Assessment and Plan Start: 11/11/21 12:12 Freq: Status: Active Protocol: Document 05/26/22 16:52 DCW (Rec: 05/26/22 16:52 DCW [id number]) Physical Therapy Assessment Assessment Summary Assessment Pt moved out of state with the [place], will discharge from skilled therapy at this time. Physical Therapy Plan Discharge Physical Therapy Discharge Reasons No Longer Attending PT
== END 2022-05-28 10:56 | disposition home or self-care (01) ==
LOC: PHYS 10:30
PROVIDERS: Family Provider Family Medicine; PCP Family Medicine; Referring Provider Otolaryngology; Visit Provider Otolaryngology
DX: R42 Dizziness and giddiness (principal)
CPT/HCPCS: 97112; 97161